=== PATIENT | female | born 1955 | race Caucasian/White ===

== ENCOUNTER 2020-07-05 08:48 | Day surgery (SDC) | payer BC ==
[2020-07-01 14:46] VITALS: BMI 24.9
--- NOTE | 2020-07-05 09:54 | HP ---
CHIEF COMPLAINT: Basal cell carcinoma left lower eyelid HISTORY OF PRESENT ILLNESS: 65 year-old woman with no significant PMH presents today for reconstruction procedure following a Moh's procedure yesterday on her left lower eyelid for a basal cell carcinoma. 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[employer], [employer] Smoking: never Alcohol: occasional wine Drugs: no Family history: mother alive @ 96 doing relatively well; father @ 39 [place]; 2 sisters, 1 brother, 2 adult children all a&w Allergies Sulfa (Sulfonamide Antibiotics) Allergy (Severe, Verified 07/01/20 14:30) HOME MEDICATIONS: Home Medications Medication Instructions Recorded NK [No Known Home Medication] 07/01/20 REVIEW OF SYSTEMS CONSTITUTIONAL: Absent: fever, chills, diaphoresis, generalized weakness, malaise, loss of appetite, weight change HEENT: +Moh's surgery 07/04 on left lower eyelid, bandaged Absent: rhinorrhea, nasal congestion, throat pain, throat swelling, difficulty swallowing, mouth swelling, ear pain, eye pain, visual changes CARDIOVASCULAR: Absent: chest pain, syncope, palpitations, irregular heart rate, lightheadedness, peripheral edema RESPIRATORY: Absent: cough, shortness of breath, dyspnea with exertion, orthopnea, wheezing, stridor, hemoptysis GASTROINTESTINAL: Absent: abdominal pain, abdominal distension, nausea, vomiting, diarrhea, constipation, melena, hematochezia GENITOURINARY: Absent: dysuria, frequency, urgency, hesitancy, hematuria, flank pain, genital pain MUSCULOSKELETAL: Absent: myalgia, arthralgia, joint swelling, back pain, neck pain SKIN: Absent: rash, itching, pallor HEMATOLOGIC/IMMUNOLOGIC: Absent: easy bleeding, easy bruising, lymphadenopathy, frequent infections ENDOCRINE: Absent: unexplained weight gain, unexplained weight loss, heat intolerance, cold intolerance NEUROLOGIC: Absent: headache, focal weakness or paresthesias, dizziness, unsteady gait, seizure, mental status changes, bladder or bowel incontinence PSYCHIATRIC: Absent: anxiety, depression, suicidal or homicidal ideation, hallucinations. PHYSICAL EXAMINATION Vital Signs - 24 hr 07/05/20 09:26 Temperature 97.7 F Pulse Rate 67 Respiratory 18 Rate Blood Pressure 124/83 O2 Sat by Pulse 96 Oximetry (%) GENERAL: Awake, alert, and fully oriented, in no acute distress. HEAD: Normal with no signs of trauma. EYES: Surgical dressing across left eye c/d/i LUNGS: Breath sounds equal, clear to auscultation bilaterally. No wheezes, and no crackles. No accessory muscle use. HEART: Regular rate and rhythm, normal S1 and S2 without murmur, rub or gallop. ABDOMEN: Soft, nontender, not distended UPPER EXTREMITIES: 2+ pulses, warm, well-perfused. No cyanosis. No clubbing. No peripheral edema. LOWER EXTREMITIES: 2+ pulses, warm, well-perfused. No calf tenderness. No peripheral edema. NEUROLOGICAL: Cranial nerves II-XII intact. Normal speech. ASSESSMENT/PLAN: 65 year-old woman with no significant PMH presents today for reconstruction procedure following a Moh's procedure yesterday on her left lower eyelid for a basal cell carcinoma. Basal cell carcinoma, left lower eyelid --initial Moh's procedure done in October 2019, +biopsy, no further treatment at the time; lesion grew back; now s/p Moh's yesterday and reconstruction today Family Medical History Family History: As Documented Visit type - Emergency Visit Emergency Visit: No - New Patient This patient is new to me today: Yes Date on this admission: 07/05/20 - Critical Care Critical Care patient: No
[2020-07-05] MEDS ORDERED: PROPOFOL 20 ML ONE (10:30)
[2020-07-05] MEDS ORDERED: MIDAZOLAM HCL 2 MG/2 ML SINGLE DOSE VIAL ONE (10:31)
[2020-07-05] MEDS ORDERED: ERYTHROMYCIN 0.5% OPHTHALMIC OINTMENT 3.5 GM TUBE ONE (10:42)
[2020-07-05] MEDS ORDERED: BUPIVACAINE HCL/PF 0.5% (5MG/ML) 10 ML VIAL ONE (10:43)
[2020-07-05] MEDS ORDERED: LIDOCAINE 1%/EPI 1:100000 (20 ML MULTI DOSE VIAL) ONE (10:43)
[2020-07-05] MEDS ORDERED: ceFAZolin SODIUM 1 GM VIAL ONE (11:28)
[2020-07-05 12:49] VITALS: TEMP 97.6
--- NOTE | 2020-07-05 14:00 | OP ---
DATE OF OPERATION: 07/05/2020 PREOPERATIVE DIAGNOSIS: Basal cell carcinoma left lower lid status post Mohs. POSTOPERATIVE DIAGNOSIS: Basal cell carcinoma left lower lid status post Mohs. PROCEDURE: 1. Full-thickness wedge excision and debridement left lower lid. 2. Lateral myocutaneous flap in left lower canthus of left lower lid. 3. Left lateral canthoplasty. SURGEON: Funmilayo Singleton MD ANESTHESIA: Local with sedation. COMPLICATIONS: None. ESTIMATED BLOOD LOSS: 5 to 10 mL OPERATIVE REPORT: Patient brought to the operating room, placed on the operating room table. Vital signs were monitored by Anesthesia. Tetracaine was placed in both eyes. Timeout was performed. The wound was photographed following which a semicircular flap in preparation for a lateral myocutaneous flap was marked in a high arch semicircle. A 50:50 mixture of 2% Xylocaine with 1:100,000 epinephrine and 0.5% Marcaine was then injected subcutaneously in the left lower lid throughout the lid and the left lateral canthus down to periosteum and the area of the planned rotated flap. Five mL were administered. Massage applied for hemostasis. Patient was prepped and draped in usual sterile fashion exposing both eyes. The right eye was manually closed. The defect involved most of the tarsus and the lateral portion of the lower lid and therefore an approximately 8- to 10-mm defect. The remaining tarsus and surrounding tissue was removed in an inverted pentagon fashion to regularize the edges and allow wound closure and this was submitted for pathologic study. The semicircular flap was then incised with a 15-blade through the skin, subcutaneous and muscle tissue extending toward the remnant of the lateral left lower lid in which was there was approximately a 3-mm remnant. The muscle flap was then elevated with García and Ventura scissors and the muscle was dissected off of the superior occlusal lateral canthal tendon and the inferior occlusal tendon was incised with sharp dissection allowing release of the lateral remnant of the lower lid and then wide undermining with the Ventura scissors was carried out in the submuscular plane to allow mobilization of this entire flap. It was advanced medially and secured to the medial end of the eyelid with 3 interrupted 6-0 silk sutures, one through the anterior lash line, one through the posterior mucocutaneous junction. These were tied and then a vertical mattress far-far, near-near suture was passed through the shankar line creating a central pucker. These were looped superiorly and the tarsus was anastomosed with 2 interrupted 6-0 Vicryl sutures. The muscle layer was closed with 2 interrupted subcuticular Vicryl sutures. Standard cutaneous deformity was excised at the inferior edge of the wound and the wound was closed with running or interrupted 6-0 plain suture with plastic technique. The marginal sutures were removed inferonasally and secured with an air knot to the skin of the nasal left lower lid. The horizontal palpebral fissure was measured bilaterally. It was 30 mm on the contralateral side. So at 30 mm on this side a delores was made and the lateral canthal angle was reformed with a 5-0 chromic through the shankar line of the upper lid and advanced the skin muscle flap to the lower lid. The lateral myocutaneous flap was supported to the periosteum lateral to the lateral canthus in the elevated position with a 6-0 Vicryl suture and then the subcuticular tissues were closed with 6-0 Vicryl and the skin was closed with combination of running and interrupted 6-0 plain. The lateral canthal angle was tailored to create the acute angle and sutured with 6-0 plain suture in this location and a Burow's triangle was removed at the superior end of the lateral rotation flap to accommodate the differences in the size of the 2 parts of the semicircle, and then this area was closed with interrupted 6-0 plain. Erythromycin was placed on all the sutures and the patient was taken to the recovery room in stable condition. Antibiotic irrigation was used throughout the case and there were no complications. FUNMILAYO SINGLETON M.D. [id number]
[2020-07-05 14:49] VITALS: BP 138/72; PULSE 62
--- NOTE | 2020-07-08 16:51 | PATH ---
Surgical Pathology Report Patient Name: ELIZABETH SPEARS Med. Rec. #: [id number] /Age/Gender: 1955 (Age: 65) / F Account: [id number] Location: [facility] Taken: 07/05/2020 Received: 07/05/2020 Reported: 07/08/2020 Physicians: Parish Baumann Specimen(s) Received PORTION LEFT LOWER EYELID Clinical History Basal cell left lower eyelid Final Diagnosis PORTION LEFT LOWER EYELID, RECONSTRUCTION: EYELID TISSUE WITH FIBRINOINFLAMMATORY EXUDATE. Electronically Signed Angelica Magaña M.D. Gross Description Received in formalin labeled "portion left lower eyelid," is a 0.8 x 0.4 x 0.3 cm unoriented portion of agrawal tissue. The base is inked blue and the specimen is trisected. The specimen is entirely submitted in one cassette. /07/06/2020 saudi/07/06/2020
== END 2020-07-05 14:10 | disposition home or self-care (01) ==
LOC: FASU 08:48
PROVIDERS: ATTEND Ophthalmology
PROC: 0KX10Z2 Transfer Facial Muscle with Skin and Subcutaneous Tissue, Open Approach (ICD-10-PCS; 2020-07-05)
PROC: 08BR0ZZ Excision of Left Lower Eyelid, Open Approach (ICD-10-PCS; principal; 2020-07-05 11:22)
DX: C44.1192 Basal cell carcinoma of skin of left lower eyelid, including canthus (principal)
CPT/HCPCS: 88304-TC; 94760